=== PATIENT | female | born 1990 | race Hispanic/Latino ===

== ENCOUNTER 2024-10-26 10:07 | Emergency (ER) | payer BC ==
[~2024-10-26] VITALS: Ht 154.9 cm; Wt 72.8 kg
[2024-10-26] MEDS ORDERED: BUPROPION XL150 MG PO (10:22)
[2024-10-26] MEDS ORDERED: VENTOLIN HFA18 GM INH (10:22)
[2024-10-26] MEDS ORDERED: BENZONATATE100 MG PO (10:22)
[2024-10-26] MEDS ORDERED: SERTRALINE HCL50 MG PO (10:22)
[2024-10-26] MEDS ORDERED: ALBUTEROL/IPRATROPIUM 3 ML NEB INH ONE (10:45)
[2024-10-26] MEDS ORDERED: methylPREDNISolone SOD SUCC 125 MG/2 ML VIAL IV ONE (10:45)
[2024-10-26 11:55] LABS: BASOPHILS 0.2 % (0-2); EOSINOPHILS 3.3 % (0-6); HEMOGLOBIN 13.6 g/dL (12.0-18.0); MCH 30.8 (27-36); MCHC 34.1 g/dl (30-36); MCV 90.2 fl (81-99); MONOCYTES 9.2 % (0-12); NEUTROPHILS 73.3 % (39-80); PLATELET COUNT 405 K/uL (140-440); RBC 4.43 M/ul (4.3-5.7); RDW 12.6 (10.5-15.0)
[2024-10-26 12:03] LABS: ALBUMIN 3.3 g/dL (3.4-5.0); ALBUMIN/GLOBULIN RATIO 0.83 (1.1-2.4); ANION GAP 13.8 (7-21); BILIRUBIN, TOTAL 0.4 mg/dL (0.2-1.0); BUN/CREATININE RATIO 6.57 (6.0-28.6); CALCIUM 8.8 mg/dL (8.5-10.1); CREATININE, SERUM 0.76 mg/dL (0.55-1.02); POTASSIUM 3.8 mmol/L (3.5-5.1); PROTEIN, TOTAL 7.3 g/dL (6.4-8.2)
[2024-10-26] MEDS ORDERED: CEFTRIAXONE SODIUM 2 GM in SODIUM CHLORIDE 0.9% 100 ML IV ONE (12:15)
[2024-10-26] MEDS ORDERED: DOXYCYCLINE HY100 MG PO (12:56)
[2024-10-26] MEDS ORDERED: PREDNISONE20 MG PO (12:56)
[2024-10-26] MEDS ORDERED: ALBUTEROL2.5 MG/3 M INH (12:56)
[2024-10-26 13:05] VITALS: BP 105/81
== END 2024-10-26 13:05 | disposition home or self-care (01) ==
LOC: ED 10:07
PROVIDERS: Emergency Medicine
DX: J18.9 Pneumonia, unspecified organism (principal); J98.01 Acute bronchospasm; Z79.899 Other long term (current) drug therapy
CPT/HCPCS: 36415; 71045; 80053; 85025; 94640; 96365; 96375; 99285-25; J0696; J2919